=== PATIENT | male | born 1965 | race Caucasian/White ===

== ENCOUNTER 2019-07-02 05:47 | Inpatient (IN) | payer BC ==
[2019-07-02] VITALS (17 sets, daily range): BP systolic 95–135; BP diastolic 52–79
[~2019-07-02] VITALS: Ht 182.9 cm
[2019-07-02 06:06] LABS: ABSOLUTE EOSINOPHILS 0.2 thou/uL (0.0-0.7); ABSOLUTE LYMPHOCYTES 2.7 thou/uL (0.8-5.3); ABSOLUTE NEUTROPHILS 6.3 thou/uL (1.6-8.1); BASOPHILS 0.3 %; EOSINOPHILS 2.1 %; HEMATOCRIT 46.1 % (42.0-52.0); HEMOGLOBIN 15.7 gm/dL (14.0-18.0); LYMPHOCYTES 26.4 %; MCH 28.7 pg (26.0-34.0); MCV 84.3 fL (80.0-100.0); MONOCYTES 9.4 %; MPV 8.6 fl. (7.2-11.1); NUCLEATED RBCS 0 /100WBC; PLATELET COUNT* 380 thou/uL (150-400); POLYS 61.8 %; RBC 5.47 mil/uL (4.50-6.00); RDW-CV 12.8 % (10.5-14.5); WBC 10.2 thou/uL (4.0-11.0)
[2019-07-02 06:24] LABS: APTT 23.3 Seconds (25.0-31.3)
[2019-07-02 06:40] LABS: ANION GAP 10 mmol/L (7-16); BUN 20 mg/dL (7-18); CALCIUM 9.5 mg/dL (8.5-10.1); CHLORIDE 102 mmol/L (98-107); CO2 29 mmol/L (21-32); CREATININE 1.1 mg/dL (0.6-1.3); GLUCOSE 174 mg/dL (70-99); POTASSIUM 4.3 mmol/L (3.5-5.1); SODIUM 141 mmol/L (136-145)
--- NOTE | 2019-07-02 06:40 | NUR ---
SEE STEMI DOCUMENTATION FORM
[2019-07-02 06:45] LABS: ALBUMIN 4.2 g/dL (3.4-5.0); ALKALINE PHOSPHATASE 55 U/L (46-116); SGOT 27 U/L (15-37); SGPT 52 U/L (30-65); TOTAL BILIRUBIN 0.3 mg/dL (<0.1-1.0)
[2019-07-02 06:50] LABS: MAGNESIUM 1.9 mg/dL (1.8-2.4)
[2019-07-02 07:04] LABS: CHOLESTEROL 163 mg/dL (<200); HDL CHOLESTEROL 31 mg/dL (>40); LDL CHOLESTEROL 77 mg/dL (<100); TC:HDL 5.3 Ratio (Not establshd); TRIGLYCERIDE 278 mg/dL (<150); VLDL 56 mg/dL (<40)
[2019-07-02 07:05] LABS: SERUM ASSESSMENT Clear
--- NOTE | 2019-07-02 10:45 | NUR ---
PT.HAD CATH AND STENT PLACED IN RCA THIS AM. HE REQUESTED TO SEE CM. HE LIVES WITH HIS . HE IS NORMALLY INDEPENDENT. 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 HE ASKED ABOUT HIS INSURANCE. CM HAD SPOKEN WITH ADMITTING EARLIER. TOLD HIM HE WAS OON FOR HIS INSURANCE AND HAD NO OON BENEFITS. HE SAID HE THOUGHT THAT, BECAUSE HIS CAME IN A FEW YEARS AGO AND THEY HAD THE SAME INS. HE ASKED ABOUT CARDIAC REHAB. TOLD HIM HE W[facility] NEED [facility]. HE WOULD LIKE TO RECOMMEND A VIDEO JOURNALIST THAT GOES TO [place]. RELAYED INFORMATION TO NURSING.
--- NOTE | 2019-07-02 10:50 | NUR ---
PATIENT ADMITTED FROM VALVE INSERTER ALERT AND ORIENTED. DENIES CP OR SOA. GROIN SITE SOFT NO HEMATOMA.
--- NOTE | 2019-07-02 12:24 | CARD ---
[address] [address] CARDIAC CATH REPORT Name: HANNA LIMA Room: [address] IN [facility]#: [id number] Admission: 07/02/19 Attend Phys: Arden Perera Discharge: Date of : 63 Report #: [id number] THIS REPORT FOR: //name// APPROVED REPORT Study performed: 07/02/2019 06:04:06 Patient Details Patient Status: ED Room #: The patient is a 53 year-old male Event Personnel Scottie Carcamo Design Intern, Rita Liriano RN Senior Product Development Engineer, Dariel Ag COORDINATOR OF HEALTH SERVICES Scrub, Andrew Tidwell RTR Scrub, Marizol Valentino RTR Monitor, Luisa Metzger RN Senior Product Development Engineer Procedures Performed Art Access - R femoral artery Left Heart Cath w/or w/o Coronaries EDWINA Revasc AMI Ttl/Sub Occl Single RCA Hemostasis w/ Angioseal Indication Abnormal ECG, STEMI (>0 to less than or equal to 6 hours), Chest pain Risk Factors Dysplipidemia , Family History, Diabetes Admission/Lab Medications/Medications given during procedure Glycoprotein IllbIlla Inhibitors, Heparin Unfract. Procedure Narrative The patient was brought emergently to the Cardiac Catheterization Laboratory and was prepped and draped in a sterile manner. The right femoral was infiltrated with 1% Lidocaine subcutaneous anesthesia. A 6fr Ultimum Sheath sheath was inserted into the right femoral artery. Coronary angiography was performed using coronary diagnostic catheters. The right coronary system was accessed and visualized with a Diagnostic JR 4 6F catheter. The left coronary system was accessed and visualized with a Diagnostic JL 4 6F catheter. The left ventricle was accessed and visualized with a Diagnostic PIG 6F catheter. Left ventricular/Aortic Valve gradient assessed via catheter pullback. Left ventriculogram was performed in CASTA[place]EDA projection. Closure device was deployed with a 6 Fr Angioseal STS 6Fr. [place] [address] CARDIAC CATH REPORT Name: HANNA LIMA Room: [address]#: [id number] Admission: 07/02/19 Attend Phys: Arden Perera Discharge: Date of : 63 Report #: [id number] procedure well and there were no complications associated with the procedure. There was no hematoma. Intraoperative Conscious Sedation Sedation start time: 06:52 Case end Time: 07:22 Fentanyl 50 mcg Versed 4 mg Fluoro Time: 4.6 minutes Dose: DAP 10692 cGycm2 865 mGy Contrast Type and Amount: Visipaque 130 ml Coronary Angiography The patient's coronary anatomy is right dominant. Diagnostic Cath Left Main 0% stenosis LAD 30% mid stenosis Circumflex 0% stenosis Right Coronary proximally occluded with thrombus Left Ventriculography The left ventricular ejection fraction is estimated to be 55-60%. Left ventricular wall motion abnormalities are present. There is no mitral insufficiency. mild inferior wall hypokinesis Hemodynamics The aortic pressure is 109/62 mmHg with a mean of 80 mmHg. The left ventricular pressure is 121/10 mmHg with a mean of mmHg. The left ventricular end diastolic pressure is 16 mmHg. There was no gradient across the aortic valve upon pullback. Pullback from the left ventricle to the aorta revealed no gradient across the aortic valve. PCI Technique Lesion Anticoagulation was achieved with Heparin. iv bolus of aggrastat given Patient was preloaded with l. Percutaneous coronary intervention was performed on the proximal right coronary artery. The lesion stenosis prior to intervention was 100% with MARCIA 0 flow. A JCR 6F Guide Catheter was used to engage the right ostium. A BMW Interventional Guidewire was used to cross the lesion. BALLOON DILATION A Balloon catheter Trek RX 2.5 X 8 was inserted and inflated up to 10.00atm for 13seconds. Repeat angiography [place] [address] CARDIAC CATH REPORT Name: HANNA LIMA Room: [address]#: [id number] Admission: 07/02/19 Attend Phys: Arden Perera Discharge: Date of : 63 Report #: [id number] post-dilatation results: 60% stenosis. Additional Inflation: 12.00atm for 10seconds. STENT DEPLOYMENT A drug-eluting stent Biotronik Orsiro 2.75 x 15 was inserted and inflated up to 10.00atm for 15seconds. Repeat angiography revealed the following post-stent deployment results: 0% stenosis. Additional Inflation: 14.00atm for 13seconds. Final angiography reveals 0 % stenosis with MARCIA 3 flow. Conclusion 1. acute occlusion of the proximal rca 2. successful placement of a single drug eluting stent in the rca 3. LVEF 55-60% Recommendations Cardiac Rehabilitation Referral Aggressive Medical Therapy Medications Administered Prasugrel <ELECTRONICALLY SIGNED> By: Scottie Carcamo MD, [facility] 07/02/19 1223 1223 1223Daviarden Carcamo MD, FAC /INF
--- NOTE | 2019-07-02 15:00 | NUR ---
PATIENT MORE RELAXED CP RESOLVED. UP ON SIDE OF BED TAKING PO WEll. HEPARIN GTT RUNNING. GROIN SITE SOFT NO HEMATOMA NOTED,
[2019-07-03] VITALS (11 sets, daily range): BP systolic 93–107; BP diastolic 40–65
[2019-07-03 04:31] LABS: ABSOLUTE EOSINOPHILS 0.1 thou/uL (0.0-0.7); ABSOLUTE LYMPHOCYTES 1.7 thou/uL (0.8-5.3); ABSOLUTE NEUTROPHILS 7.4 thou/uL (1.6-8.1); BASOPHILS 0.2 %; EOSINOPHILS 1.1 %; HEMOGLOBIN 14.3 gm/dL (14.0-18.0); LYMPHOCYTES 16.8 %; MCH 28.5 pg (26.0-34.0); MCHC 34.1 g/dL (28.0-37.0); MCV 83.6 fL (80.0-100.0); MONOCYTES 10.2 %; MPV 8.4 fl. (7.2-11.1); NUCLEATED RBCS 0 /100WBC; POLYS 71.7 %; RBC 5.02 mil/uL (4.50-6.00); RDW-CV 12.8 % (10.5-14.5); WBC 10.3 thou/uL (4.0-11.0)
--- NOTE | 2019-07-03 04:32 | NUR ---
ASSUMED CARE AT 1900H, ON NC AT 2LPM AND TOLERATED.WITH BACK PAIN AND SLIGHT CHEST PAIN,PRN MEDS GIVEN.NO EKG CHANGES AND BLEEDING NOTED.NO HEMATOMA ON POST GRANTS ANALYST SITE BUT WITH SLIGHT SWELLING.ACCORDING TO PT, HE FEELS BETTER COMPAIR YESTERDAY AFTERNOON.CONTINUE MONITORING AND TOWARD GOALS.
[2019-07-03 04:50] LABS: CALCIUM 9.3 mg/dL (8.5-10.1); POTASSIUM 4.2 mmol/L (3.5-5.1)
[2019-07-03 04:52] LABS: TROPONIN-I LEVEL 27.44 ng/mL (<0.06)
[2019-07-03 04:54] LABS: PLATELET COUNT* 296 thou/uL (150-400)
[2019-07-03] MEDS ORDERED: VICTOZA0.6 MG/0.1 SUBQ (09:00)
[2019-07-03] MEDS ORDERED: JARDIANCE10 MG PO (09:03)
[2019-07-03] MEDS ORDERED: LEVO-T100 MCG PO (09:06)
[2019-07-03] MEDS ORDERED: CRESTOR40 MG PO (09:08)
[2019-07-03] MEDS ORDERED: METFORMIN HCL500 M1 PO (09:09)
[2019-07-03] MEDS ORDERED: FENOFIBRATE150 MG PO (09:10)
[2019-07-03] MEDS ORDERED: CARVEDILOL3.125 MG PO (09:14)
[2019-07-03] MEDS ORDERED: EFFIENT10 MG PO (09:14)
--- NOTE | 2019-07-03 09:25 | H ---
[address] [address] HISTORY AND PHYSICAL Name: HANNA LIMA Room: [address] IN .R.#: [id number] Admission: 07/02/19 Attend Phys: Arden Perera Discharge: Date of : 63 Report #: [id number] THIS REPORT FOR: //name// CC: Scottie SALAZAR physician/PCP DATE OF SERVICE: 07/02/2019 HISTORY OF PRESENT ILLNESS: The patient is a 53-year-old white male who I was asked to see in the Emergency Room today after he complained of chest pain. The patient denies a previous history of chest pain. However, for the past several days, he has been having intermittent pressure in his chest, lasted about a half an hour and resolved. It is not related to exertion or meals. On the day of admission, he awakened at 4:30 in the morning with a discomfort in his chest, went into his arms, he became short of breath. Denied any diaphoresis. He had no recent fever, cough, bleeding. Denied any trauma to his chest. The pain persisted, so he finally called the ambulance. On arrival to his home, ECG by paramedics showed evidence of acute inferior STEMI. He was transferred to [place] by ambulance. I was asked to see him on an emergent basis. He is not very active, but denies any significant exertional dyspnea, palpitations or syncope. PAST MEDICAL HISTORY: He has had previous cholecystectomy, appendectomy. He has a history of thyroid cancer, had thyroidectomy. He has had eye surgery. MEDICATIONS: Include Victoza, metformin, Jardiance, Crestor, fenofibrate. He is on Synthroid replacement. ALLERGIES: HE HAS AN ALLERGY TO MORPHINE. He is currently followed by an stock parts fabricator. FAMILY HISTORY: Positive for heart diseases, his father had bypass surgery. SOCIAL HISTORY: He is . He works as a nurse at the [employer]. No smoking. Has about 2 or 3 drinks of alcohol a day. REVIEW OF SYSTEMS: No history of stroke. He has a previous history of asthma. No history of peptic ulcer disease, liver disease, kidney disease, psychiatric illness or chronic skin condition. PHYSICAL EXAMINATION: GENERAL: Revealed a middle-aged male, appeared in mild distress. VITAL SIGNS: His blood pressure 130/80, pulse is 60. He is afebrile. HEENT: He was anicteric. Conjunctivae are pink. Mucous membranes moist. NECK: Veins nondistended. No carotid bruits. Neck supple. CHEST: [place] [address] HISTORY AND PHYSICAL Name: HANNA LIMA Room: [address] IN [facility]#: [id number] Admission: 07/02/19 Attend Phys: Arden Perera Discharge: Date of : 63 Report #: [id number] CARDIOVASCULAR: Regular rate and rhythm. ABDOMEN: Soft. EXTREMITIES: Had no edema. SKIN: Warm and dry. Posterior tibial pulse 2+ bilaterally. PSYCHIATRIC: Mood is appropriate. DIAGNOSTIC DATA: ECG showed a sinus rhythm with ST segment elevation in leads II, III and aVF with rare PVC. LABORATORY WORK: Sodium 141, BUN 20, creatinine 1.1, glucose 174. His troponin 0.14. Cholesterol 163, triglyceride 278, HDL 31, LDL 77. His white blood cell count 10.2, hemoglobin 15.7. His chest x-ray done in the Emergency Room showed cardiomegaly, clear lung martinez. IMPRESSION AND RECOMMENDATIONS: 1. Acute inferior wall ST segment elevation myocardial infarction. Recommend cardiac catheterization. 2. Diabetes. The patient is on oral medications. 3. Hyperlipidemia. The patient is on a statin drug. 4. Hypertriglyceridemia. The patient is fenofibrate. 5. History of thyroid cancer. The patient had surgery. Currently, on thyroid replacement. 6. Previous history of asthma. <ELECTRONICALLY SIGNED> By: Scottie Carcamo MD, FACC 07/03/19 0925 0753 0809Damanuel Carcamo MD, FACC /nt
[2019-07-03] MEDS ORDERED: NITROSTAT0.4 M1 SUBLING (10:43)
--- NOTE | 2019-07-03 10:53 | EKG ---
[place] [address] ELECTROCARDIOGRAM REPORT Name: HANNA LIMA Room: [address] ADM IN M.R.#: [id number] Admission: 07/02/19 Attend Phys: Arden Perera Discharge: Date of : 63 Report #: [id number] THIS REPORT FOR: //name// [facility] ED Test Date: 2019-07-02 Test Time: 05:58:57 Pat Name: HANNA AGUDELOALONZOARIELLE Department: Room: [address] Gender: M Chemistry Laboratory Technician: YENNI : 1965 Requested By: Scottie Carcamo Order Number: [id number] Keven MD: Chuck Yarbrough Measurements Intervals [place] Rate: 56 P: 49 ME: 200 QRS: -22 QRSD: 108 T: 41 QT: 412 QTc: 398 Interpretive Statements Sinus rhythm Ventricular premature complex Possible left atrial enlargement Inferior infarct, acute (RCA) Consider anterior infarct Lateral leads are also involved Probable RV involvement, suggest recording right precordial leads No previous ECG available for comparison Electronically Signed On 07-03-2019 10:53:04 OIL EXPLORATION ENGINEER by Chuck Yarbrough [email or web address] <ELECTRONICALLY SIGNED> By: Chuck Yarbrough MD, FACC 07/03/19 1053 0558 0558 Chuck Yarbrough MD, [facility] /EPI
--- NOTE | 2019-07-03 10:54 | EKG ---
[place] [address] ELECTROCARDIOGRAM REPORT Name: HANNA LIMA Room: [address] IN .R.#: [id number] Admission: 07/02/19 Attend Phys: Arden Perera Discharge: Date of : 63 Report #: [id number] THIS REPORT FOR: //name// [facility] Test Date: 2019-07-02 Test Time: 09:03:26 Pat Name: HANNA LIMA Department: Room: [facility] Gender: M Superior Court Judge: JENNIFER : 1965 Requested By: Fermín Headley Order Number: [id number] MD: Chuck Yarbrough Measurements Intervals [place] Rate: 54 P: 53 DC: 193 QRS: -45 QRSD: 103 T: -7 QT: 416 QTc: 395 Interpretive Statements Sinus rhythm Inferior infarct, age indeterminate No previous ECG available for comparison Electronically Signed On 07-03-2019 10:54:04 MEDICAL NUMERICAL CONTROL OPERATOR by Chuck Yarbrough [email or web address] <ELECTRONICALLY SIGNED> By: Chuck Yarbrough MD, [facility] 07/03/19 1054 2 2 Chuck Yarbrough MD, FAC /EPI
--- NOTE | 2019-07-03 10:57 | EKG ---
[place] [address] ELECTROCARDIOGRAM REPORT Name: HANNA LIMA Room: [address] IN M.R.#: [id number] Admission: 07/02/19 Attend Phys: Arden Perera Discharge: Date of : 63 Report #: [id number] THIS REPORT FOR: //name// [facility] Test Date: 2019-07-02 Test Time: 12:03:06 Pat Name: HANNA LIMA Department: Room: [address] Gender: M Business Services Analyst: : 1965 Requested By: Maikel Morrison Order Number: [id number] Keven MD: Chuck Yarbrough Measurements Intervals [place] Rate: 61 P: 56 [place]: 190 QRS: -50 QRSD: 101 T: 7 QT: 412 QTc: 415 Interpretive Statements Sinus rhythm Ventricular premature complex Abnormal R-wave progression, late transition Inferior infarct, old No previous ECG available for comparison Electronically Signed On 07-03-2019 10:57:11 BAND MANAGER by Chuck Yarbrough [email or web address] <ELECTRONICALLY SIGNED> By: Chuck Yarbrouhg MD, [facility] 07/03/19 1057 1203 1203 Chuck Yarbrough MD, [facility] /EPI
--- NOTE | 2019-07-03 10:58 | EKG ---
[place] [address] ELECTROCARDIOGRAM REPORT Name: HANNA LIMA Room: [address] ADM IN M.R.#: [id number] Admission: 07/02/19 Attend Phys: Arden Perera Discharge: Date of : 63 Report #: [id number] THIS REPORT FOR: //name// [facility] Test Date: 2019-07-02 Test Time: 13:13:19 Pat Name: HANNA LIMA Department: Room: [address] Gender: M Program Review Director: JENNIFER : 1965 Requested By: Maikel Morrison Order Number: [id number] Keven MD: Chuck Yarbrough Measurements Intervals [place] Rate: 57 P: 42 DC: 186 QRS: -51 QRSD: 102 T: 23 QT: 405 QTc: 395 Interpretive Statements Sinus rhythm Probable inferior infarct, acute Lateral leads are also involved No previous ECG available for comparison Electronically Signed On 07-03-2019 10:58:07 OYSTER PLANTER by Chuck Yarbrough [email or web address] <ELECTRONICALLY SIGNED> By: Chuck Yarbrough MD, [facility] 07/03/19 1058 Chuck Yarbrough MD, FAC /EPI
--- NOTE | 2019-07-03 11:04 | EKG ---
[place] [address] ELECTROCARDIOGRAM REPORT Name: HANNA LIMA Room: [address] ADM IN M.R.#: [id number] Admission: 07/02/19 Attend Phys: Arden Perera Discharge: Date of : 63 Report #: [id number] THIS REPORT FOR: //name// [facility] Test Date: 2019-07-03 Test Time: 07:33:10 Pat Name: HANNA LIMA Department: Room: [address] Gender: M Psychology Lecturer: RT : 1965 Requested By: Scottie Carcamo Order Number: [id number] Keven MD: Chuck Yarbrough Measurements Intervals [place] Rate: 58 P: 50 IN: 182 QRS: -49 QRSD: 102 T: -33 QT: 465 QTc: 457 Interpretive Statements Sinus rhythm Multiple ventricular premature complexes Inferior infarct, recent Consider anterior infarct No previous ECG available for comparison Electronically Signed On 07-03-2019 11:04:04 SPEECH INSTRUCTOR by Chuck Yarbrough [email or web address] <ELECTRONICALLY SIGNED> By: Chuck Yarbrough MD, [facility] 07/03/19 1104 Chuck Yarbrough MD, FAC /EPI
--- NOTE | 2019-07-03 16:26 | NUR ---
THIS PATIENT BILLER ASSUMED CARE OF PT AT 0700 PT PROGRESSED TOWARD GOALS AND WAS DISCHARGED FROM ICU AT 1420. PT BELONGING GATHERED AND SENT HOME WITH PT. MEDICATION SCRIPT AND DISCHARGE PAPER SENT WITH PT F/U APPT IS 07/17/19 AT 1100 WITH EARLENE SYKES NP. THIS NURSE ESCORTED PT AND TO CAR. PT LEFT WITH
--- NOTE | 2019-07-05 15:31 | D ---
[address] [address] DISCHARGE SUMMARY Name: HANNA LIMA Room: [address]#: [id number] Admission: 07/02/19 Attend Phys: Arden Perera Discharge: 07/03/19 Date of : 63 Report #: [id number] THIS REPORT FOR: //name// CC: Scottie Carcamo [facility] physician/PCP Dominik Rdz DATE OF SERVICE: 07/02/2019 FINAL DISCHARGE DIAGNOSES: 1. Acute ST segment elevation myocardial infarction. 2. Diabetes. 3. Hypertension. 4. Hyperlipidemia. 5. History of thyroid cancer. 6. History of asthma. PROCEDURES: 07/02/2019 -- left heart catheterization, selective coronary arteriography, percutaneous coronary intervention with deployment of drug-eluting stent in the proximal right coronary artery. HOSPITAL COURSE: The patient is a 53-year-old male who presented with severe chest pain and ST segment elevation in inferior leads. This is in the context of diabetes, hypertension and hyperlipidemia. He was taken emergently to the label machine operator by Dr. Carcamo who performed acute percutaneous coronary intervention, stenting the proximal right coronary artery with a good angiographic result. There were no significant stenosis of the left main, LAD or circumflex coronary arteries. He did well post-procedurally and ambulated in the hallways without difficulty. He has some atypical chest discomfort on the day of 07/02/2019, but this remitted and there were no EKG changes to suggest injury. EKG is a followup to reflect the acute inferior wall infarction. Peak troponin was 27.4. Laboratory on 07/03 revealed sodium 138, potassium 4.2, BUN 14, creatinine 1.0. Hemoglobin 14.3, white blood cell count 10,300 with 296,000 platelets. The patient is discharged to home in stable condition on the following medications: Crestor 40 mg daily, carvedilol 3.125 mg b.i.d., sliding scale insulin, and prasugrel or Effient 10 mg daily as well as aspirin 81 mg daily. He also has to take p.r.n. sublingual [place] [address] DISCHARGE SUMMARY Name: HANNA LIMA Room: [address]#: [id number] Admission: 07/02/19 Attend Phys: Arden Perera Discharge: 07/03/19 Date of : 63 Report #: [id number] He is scheduled to return to see our nurse practitioner on 07/17/2019 and his continuing care will be with Dr. Ramon Saha at [facility]. <ELECTRONICALLY SIGNED> By: Maikel Morrison MD, [facility] 07/05/19 1531 1421 1510John Blanca Morrison MD, FACC /nt
== END 2019-07-03 16:20 | disposition home or self-care (01) | DRG 247 ==
LOC: M.CL 05:47 → M.ERS 05:47 → M.ICU 07:57 → M.TBA-CV 07:57 → M.ICU 08:13
PROVIDERS: Family Medicine; Internal Medicine; Internal Medicine Cardiovascular Disease; ADMIT Internal Medicine
PROC: B215YZZ Fluoroscopy of Left Heart using Other Contrast (ICD-10-PCS; principal; 2019-07-02)
PROC: B211YZZ Fluoroscopy of Multiple Coronary Arteries using Other Contrast (ICD-10-PCS; principal; 2019-07-02)
PROC: 4A023N7 Measurement of Cardiac Sampling and Pressure, Left Heart, Percutaneous Approach (ICD-10-PCS; principal; 2019-07-02)
PROC: 027034Z Dilation of Coronary Artery, One Artery with Drug-eluting Intraluminal Device, Percutaneous Approach (ICD-10-PCS; principal; 2019-07-02)
DX: I21.19 ST elevation (STEMI) myocardial infarction involving other coronary artery of inferior wall (principal); E78.00 Pure hypercholesterolemia, unspecified; E11.9 Type 2 diabetes mellitus without complications; I10 Essential (primary) hypertension; E78.5 Hyperlipidemia, unspecified; E78.1 Pure hyperglyceridemia; J45.909 Unspecified asthma, uncomplicated; E89.0 Postprocedural hypothyroidism; Z85.850 Personal history of malignant neoplasm of thyroid; Z90.49 Acquired absence of other specified parts of digestive tract; Z88.6 Allergy status to analgesic agent; Z82.49 Family history of ischemic heart disease and other diseases of the circulatory system